=== PATIENT | female | born 1935 | race Caucasian/White ===

== ENCOUNTER 2017-07-15 00:13 | Emergency (ER) | payer OTHER ==
[~2017-07-15] VITALS: Ht 152.4 cm; Wt 76.8 kg
[2017-07-15 00:10] VITALS: TEMP 36.8; Ht 152.4 cm; Wt 76.8 kg
[2017-07-15] MEDS ORDERED: SODIUM CHLORIDE 0.9% 1000ML 1,000 ML IV ONE (00:30)
[2017-07-15] MEDS: MoRPHine SULFATE 2 MG/ML CARP IV PRN ×2 (00:48→02:32)
[2017-07-15 00:56] LABS: BASO % 0.2 %; BASO ABS # 0.02 K/uL (0-0.2); COMPLETE YES; EOS % 1.8 %; HEMATOCRIT 41.2 % (37-47); IG% 0.5 %; LYMPH ABS # 0.91 K/uL (1.2-3.4); MEAN CELL VOLUME 106.7 fL (80-100); MEAN CORPUSCULAR HGB CONC 32.8 g/dl (32-36); MEAN PLATELET VOLUME 9.9 fL (7.4-10.4); MONO % 4.8 %; NEUT % 81.7 %; PLATELET COUNT 191 K/uL (130-400); RED BLOOD COUNT 3.86 M/uL (4.2-5.4); WHITE BLOOD COUNT 8.28 K/uL (4.8-10.8)
[2017-07-15] MEDS ORDERED: GEMF600T3 PO (01:13)
[2017-07-15] MEDS ORDERED: POLY150C12 PO (01:13)
[2017-07-15] MEDS ORDERED: CHOL100010 PO (01:13)
[2017-07-15] MEDS ORDERED: XRL10 PO (01:13)
[2017-07-15] MEDS ORDERED: FOLI1TAB7 PO (01:13)
[2017-07-15] MEDS ORDERED: CYAN100020 PO (01:13)
[2017-07-15] MEDS ORDERED: BUME2TAB3 PO (01:13)
[2017-07-15] MEDS ORDERED: CALC600T37 PO (01:13)
[2017-07-15] MEDS ORDERED: POTA99TA PO (01:13)
[2017-07-15] MEDS ORDERED: LUTE10TA PO (01:13)
[2017-07-15] MEDS ORDERED: METH2.5T PO (01:13)
[2017-07-15] MEDS ORDERED: DRON400T PO (01:16)
[2017-07-15 01:30] LABS: ALB/GLOB RATIO 0.9 (0.9-2); BUN/CREATININE RATIO 19.8 (10-20); CALCIUM 8.9 mg/dl (8.5-10.1); CREATININE 0.95 mg/dl (0.60-1.20); POTASSIUM 3.7 mmol/L (3.5-5.1)
[2017-07-15] MEDS ORDERED: NORCO 5/325MG HOME PACK PO ONE (03:30)
[2017-07-15 05:42] VITALS: BP 119/54; PULSE 78; O2SAT 95
--- NOTE | 2017-07-15 07:51 | DIAGNOSTIC IMAGING REPORT ---
SINGLE VIEW PELVIS; SINGLE VIEW RIGHT HIP; TWO VIEWS LEFT HIP CLINICAL HISTORY: Left hip pain. No history of trauma. FINDINGS: Two AP views of the pelvis, an AP view of the right hip, with AP and frog-leg views of the left hip were obtained. No prior studies are available for comparison at the time of dictation. The skeletal structures are osteopenic. No acute fracture is seen involving the hips or bony pelvis. 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 2 cortical lag screws transfix the acetabular cup. There is an elongated femoral stem with chronic posttraumatic change the proximal femur and numerous surrounding cerclage wires. Orthopedic hardware appears intact. No periprosthetic lucency is seen. There is also chronic posttraumatic deformity of the left hip with a dynamic intertrochanteric compression screw and a buttress plate along the lateral femoral cortex. Numerous cortical lag screws transfix the buttress plate and there are several cerclage wires. The most inferior screw transfixing the buttress plate appears fractured. No periprosthetic lucency is identified. 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 Sclerotic change is noted in the sacroiliac joints. Advanced lumbosacral spondylosis is partially imaged. There is a nonobstructed abdominal bowel gas pattern noting moderate constipation. A large calcification projects over the left groin. There is advanced atherosclerotic calcification of the femoral arteries. IMPRESSION: 1. There is no radiographic evidence of acute fracture involving the hips or bony pelvis. 2. Chronic deformity and postoperative change is identified in both proximal femora as above. 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 3. The most inferior screw transfixing the left femoral buttress plate appears fractured. 4. 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 Dictated: 07/15/2017 7:32 AM Transcribed: 07/15/2017 7:50 AM Shira Electronically signed by: Kevin Bailey M.D. 07/15/2017 7:56 AM Dictated Date/Time: 07/15/2017 7:32 AM
--- NOTE | 2017-07-15 23:44 | EMERGENCY ROOM VISIT NOTE ---
History First contact with patient: 00:17 Chief Complaint: HIP PAIN Stated Complaint: HIP PAIN History of Present Illness The patient is a 82 year old female who presents to the Emergency Room with complaints of left-sided hip pain worsening over the past few hours. The patient has a history of chronic issues with previous hip replacement several years ago. The patient is traveling and is staying in a hotel. She does not have reports of fall or other injury. She is having difficulty ambulating because of her worsening pain. She has not had fever or chills. No difficulty with back pain, fever, or using the bathroom. She rates her discomfort a 6/10 that worsens with attempted ambulation. Review of Systems More than 10 systems were reviewed and otherwise negative with the exception of history of present illness. Past Medical/Surgical History History of A. fib Family History No pertinent family history Social History Smoking Status: Former Smoker Occupation Status: retired Current/Historical Medications Scheduled Bumetanide (Bumex), 2 MG PO BID Calcium (Calcium), 600 MG PO TID Cholecalciferol (Vitamin D), 1,000 UNITS PO DAILY Cyanocobalamin (Vitamin B12), 1,000 MCG PO DAILY Dronedarone Hcl (Multaq), Unknown Dose PO DIRECTED Folic Acid (Folvite), 1 MG PO DAILY Gemfibrozil (Lopid), 600 MG PO BID Lutein (Lutein), Unknown Dose PO DAILY Methotrexate (Methotrexate), 12.5 MG PO WK Polysaccharide Iron Complex (Poly-Iron 150), 150 MG PO DAILY Potassium (Potassium), 2 TABS PO DAILY Rivaroxaban (Xarelto), 10 MG PO DAILY Physical Exam Vital Signs Date Time Temp Pulse Resp B/P (MAP) Pulse Ox O2 Delivery O2 Flow Rate FiO2 07/15/17 05:42 78 20 119/54 95 Room Air 07/15/17 03:24 92 20 170/68 93 Room Air 07/15/17 02:48 89 22 152/80 96 Room Air 07/15/17 01:58 115 12 133/72 94 Room Air 07/15/17 00:53 120 20 133/72 96 Room Air 07/15/17 00:27 126 07/15/17 00:10 36.8 111 16 131/108 94 Room Air Physical Exam VITALS: Vitals are noted on the nurse's note and reviewed by myself. Vital signs stable. GENERAL: Elderly-appearing white female, who is in no acute distress and resting comfortably. Patient is cooperative with the examination. NECK: Supple without nuchal rigidity. No lymphadenopathy. No thyromegaly. Cervical spine is nontender. HEART: Regular rate and rhythm without murmurs gallops or rubs. LUNGS: Irregularly irregular with systolic murmur. ABDOMEN: Positive normal bowel sounds x 4. Soft, nontender, without masses or organomegaly. No guarding or rebound tenderness. MUSCULOSKELETAL: No rotation or shortening of the extremities. There is tenderness diffusely throughout the left hip. There is increased patient tenderness with internal and external rotation. Range of motion is limited secondary to this tenderness. Medical Decision & Procedures ER Provider Diagnostic Interpretation: SINGLE VIEW PELVIS; SINGLE VIEW RIGHT HIP; TWO VIEWS LEFT HIP CLINICAL HISTORY: Left hip pain. No history of trauma. FINDINGS: Two AP views of the pelvis, an AP view of the right hip, with AP and frog-leg views of the left hip were obtained. No prior studies are available for comparison at the time of dictation. The skeletal structures are osteopenic. No acute fracture is seen involving the hips or bony pelvis. 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 2 cortical lag screws transfix the acetabular cup. There is an elongated femoral stem with chronic posttraumatic change the proximal femur and numerous surrounding cerclage wires. Orthopedic hardware appears intact. No periprosthetic lucency is seen. There is also chronic posttraumatic deformity of the left hip with a dynamic intertrochanteric compression screw and a buttress plate along the lateral femoral cortex. Numerous cortical lag screws transfix the buttress plate and there are several cerclage wires. The most inferior screw transfixing the buttress plate appears fractured. No periprosthetic lucency is identified. 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 Sclerotic change is noted in the sacroiliac joints. Advanced lumbosacral spondylosis is partially imaged. There is a nonobstructed abdominal bowel gas pattern noting moderate constipation. A large calcification projects over the left groin. There is advanced atherosclerotic calcification of the femoral arteries. IMPRESSION: 1. There is no radiographic evidence of acute fracture involving the hips or bony pelvis. 2. Chronic deformity and postoperative change is identified in both proximal femora as above. 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 3. The most inferior screw transfixing the left femoral buttress plate appears fractured. 4. 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 Laboratory Results 07/15/17 00:45 Red Blood Count 3.86, Mean Corpuscular Volume 106.7, Mean Corpuscular Hemoglobin 35.0, Mean Corpuscular Hemoglobin Concent 32.8, Mean Platelet Volume 9.9, Neutrophils (%) (Auto) 81.7, Lymphocytes (%) (Auto) 11.0, Monocytes (%) ( Auto) 4.8, Eosinophils (%) (Auto) 1.8, Basophils (%) (Auto) 0.2, Neutrophils # ( Auto) 6.76, Lymphocytes # (Auto) 0.91, Monocytes # (Auto) 0.40, Eosinophils # ( Auto) 0.15, Basophils # (Auto) 0.02 07/15/17 00:45 Test 07/15/17 00:45 White Blood Count 8.28 K/uL (4.8-10.8) Red Blood Count 3.86 M/uL (4.2-5.4) Hemoglobin 13.5 g/dL (12.0-16.0) Hematocrit 41.2 % (37-47) Mean Corpuscular Volume 106.7 fL (80-100) Mean Corpuscular Hemoglobin 35.0 pg (25-34) Mean Corpuscular Hemoglobin Concent 32.8 g/dl (32-36) Platelet Count 191 K/uL (130-400) Mean Platelet Volume 9.9 fL (7.4-10.4) Neutrophils (%) (Auto) 81.7 % Lymphocytes (%) (Auto) 11.0 % Monocytes (%) (Auto) 4.8 % Eosinophils (%) (Auto) 1.8 % Basophils (%) (Auto) 0.2 % Neutrophils # (Auto) 6.76 K/uL (1.4-6.5) Lymphocytes # (Auto) 0.91 K/uL (1.2-3.4) Monocytes # (Auto) 0.40 K/uL (0.11-0.59) Eosinophils # (Auto) 0.15 K/uL (0-0.5) Basophils # (Auto) 0.02 K/uL (0-0.2) RDW Standard Deviation 58.0 fL (36.4-46.3) RDW Coefficient of Variation 15.0 % (11.5-14.5) Immature Granulocyte % (Auto) 0.5 % Immature Granulocyte # (Auto) 0.04 K/uL (0.00-0.02) Anion Gap 7.0 mmol/L (3-11) Est Creatinine Clear Calc Drug Dose 41.8 ml/min Estimated GFR () 64.6 Estimated GFR (Non- 55.8 BUN/Creatinine Ratio 19.8 (10-20) Calcium Level 8.9 mg/dl (8.5-10.1) Total Bilirubin 0.4 mg/dl (0.2-1) Aspartate Amino Transf (AST/SGOT) 35 U/L (15-37) Alanine Aminotransferase (ALT/SGPT) 28 U/L (12-78) Alkaline Phosphatase 102 U/L (45-117) Total Protein 7.1 gm/dl (6.4-8.2) Albumin 3.3 gm/dl (3.4-5.0) Globulin 3.8 gm/dl (2.5-4.0) Albumin/Globulin Ratio 0.9 (0.9-2) Chemistry Specimen Hemolysis Medications Administered Medications (Trade) Dose Ordered Sig/Maurice Route Start Time Stop Time Status Last Admin Dose Admin Morphine Sulfate (MoRPHine SULFATE INJ) 2 mg Q30M PRN IV 07/15/17 00:30 07/15/17 06:44 DC 07/15/17 02:32 2 MG Sodium Chloride 1,000 ml @ 333 mls/hr Q3H1M ONCE IV 07/15/17 00:30 07/15/17 03:30 DC 07/15/17 00:30 333 MLS/HR Methylprednisolone Sodium Succinate (Solu-Medrol IV) 60 mg NOW STAT IV 07/15/17 01:42 07/15/17 01:43 DC 07/15/17 01:54 60 MG Acetaminophen/ Hydrocodone Bitart ([place] 5/325mg Home Pack) 1 homepack UD ONCE PO 07/15/17 03:30 07/15/17 03:31 DC 07/15/17 06:03 1 HOMEPACK ED Course Physical exam and history were performed. Nursing notes, EMR, and Medication List were personally reviewed. Patient appears to have left hip pain of atraumatic origin for the past several hours. She does not have obvious signs of infection and the pain is reproducible with palpation and range of motion. IV access was established and basic labs were obtained. The patient was given a small amount of IV morphine and a small amount of IV Solu-Medrol. Plain films were performed. The patient's blood work is as above and was reviewed. She does not have a significantly elevated white blood cell count, gross anemia, bandemia, or gross electrolyte imbalance. Her x-rays do not show evidence of acute process. The patient felt much better after analgesics and steroids. She was able to ambulate to the bathroom using her walker and reported significant improvement of her pain. I discussed options of care with the patient including staying through the night to have possible discharged to a rehabilitation hospital. The patient does not live locally and does have a preference for discharge back to her hotel. She does have a walker with her and this seems reasonable. She was given Dilaudid additional discharge instructions as below and otherwise invited back to the ER with any new, worsening, or concerning symptoms. The chart was completed utilizing [employer] Speech Voice Recognition Software. Grammatical errors, random word insertions, pronoun errors, and incomplete sentences are an occasional consequence of this system due to software limitations, ambient noise, and hardware issues. Any formal questions or concerns about the content, text, or information contained within the body of this dictation should be directly addressed to the provider for clarification. . Medical Decision Differential diagnosis includes, but is not limited to: Sprain, strain, fracture , dislocation, subluxation, contusion, infection, and others Medication Reconcilliation Current Medication List: was personally reviewed by me Blood Pressure Screening Patient's blood pressure: Normal blood pressure Impression Primary Impression: Left hip pain Departure Information Dispostion Home / Self-Care Condition GOOD Forms WORK / SCHOOL INSTRUCTIONS, HOME CARE DOCUMENTATION FORM, IMPORTANT VISIT INFORMATION Patient Instructions My [facility] Additional Instructions You were seen and evaluated today on an emergency basis only. This is not a substitute for, or an effort to provide, complete comprehensive medical care. It is not possible to recognize and treat all injuries or illnesses in a single emergency department visit. For this reason it is recommended that you followup with your primary care physician upon returning home for ongoing care and evaluation. [place] (hydrocodone/acetaminophen) 5/325 mg (homepack): ONE tab every 6 hours as needed for worsening breakthrough pain. Do not drink or drive on [place]. This medication will likely make you tired. Do not take [place] and Tylenol at the same time as both contain acetaminophen. [place] may cause constipation. You may wish to take an [id number] stool softener like Colace if this occurs. Use your walker to prevent falling. You are welcome to return to the emergency department anytime with new, worsening, or concerning symptoms.
== END 2017-07-15 06:05 | disposition home or self-care (01) ==
LOC: C.EDC 00:15 → C.EDB 06:05
DX: M25.552 Pain in left hip (principal); I48.91 Unspecified atrial fibrillation; Z87.891 Personal history of nicotine dependence; Z79.01 Long term (current) use of anticoagulants